=== PATIENT | female | born 1990 | race Caucasian/White ===

== ENCOUNTER 2016-12-30 19:42 | Outpatient (CLI) | payer BC, OTHER ==
[~2016-12-30 19:42] MED LIST: COLACE 100MG C100 MG PO; FERROUS SULFAT325 M1 PO; IBUPROFEN600 MG PO; NORCO 5-325 TA1 EACH PO; ZOFRAN 4 MG TAB4 MG PO
== END 2016-12-30 22:55 | disposition home or self-care (01) ==
LOC: GENOP 19:42
DX: O42.913 Preterm premature rupture of membranes, unspecified as to length of time between rupture and onset of labor, third trimester (principal); O36.8130 Decreased fetal movements, third trimester, not applicable or unspecified; O26.893 Other specified pregnancy related conditions, third trimester; R10.9 Unspecified abdominal pain; Z3A.36 36 weeks gestation of pregnancy
CPT/HCPCS: 83518; G0463

== ENCOUNTER 2017-01-06 22:08 | Inpatient (IN) | payer BC, OTHER ==
[2017-01-07 02:16] LABS: HEMOGLOBIN 10.9 gm/dl (12.3-15.3); RED BLOOD COUNT 3.96 M/UL (4.00-5.10); WHITE BLOOD COUNT 10.6 K/UL (4.5-11.0)
[2017-01-08 03:05] LABS: HEMOGLOBIN 10.2 gm/dl (12.3-15.3)
== END 2017-01-08 16:39 | disposition home or self-care (01) | DRG 775 ==
LOC: GENOP 22:08 → OB 01-07 02:12
PROVIDERS: ADMIT Obstetrics & Gynecology
PROC: 10E0XZZ Delivery of Products of Conception, External Approach (ICD-10-PCS; principal; 2017-01-07)
PROC: 3E0R3CZ (ICD-10-PCS; 2017-01-07)
DX: O34.43 Maternal care for other abnormalities of cervix, third trimester (principal); O35.8XX0 Maternal care for other (suspected) fetal abnormality and damage, not applicable or unspecified; O99.334 Smoking (tobacco) complicating childbirth; F17.210 Nicotine dependence, cigarettes, uncomplicated; Z3A.37 37 weeks gestation of pregnancy; Z37.0 Single live birth; O99.353 Diseases of the nervous system complicating pregnancy, third trimester; G43.909 Migraine, unspecified, not intractable, without status migrainosus; Z80.1 Family history of malignant neoplasm of trachea, bronchus and lung; Z80.8 Family history of malignant neoplasm of other organs or systems; Z83.3 Family history of diabetes mellitus; Z82.49 Family history of ischemic heart disease and other diseases of the circulatory system; Z83.49 Family history of other endocrine, nutritional and metabolic diseases; Z81.8 Family history of other mental and behavioral disorders
CPT/HCPCS: 36415; 51702; 82800; 85014; 85018; 85025; J2300; J2405; J2590; J2795; J3430; J7120; Q0162